=== PATIENT | male | born 1965 ===

== ENCOUNTER → 2023-04-12 | Outpatient (CLI) | payer MEDICARE, OTHER ==
[~2023-04-12] MED LIST: AMOX500 PO; HYDGUAL120 PO
[2023-04-12 19:41] LABS: Microalb/Creat Ratio UR, Rand 10.234 mg/g (0.000-30.000); Microalbumin, Random Urine 21.9 mg/L (0.000-20.000)
== END | disposition home or self-care (01) ==
LOC: LAB SHORT 10:30 → LAB 10:30
PROVIDERS: Physician Assistant
DX: E11.65 Type 2 diabetes mellitus with hyperglycemia (principal); Z79.4 Long term (current) use of insulin
CPT/HCPCS: 82043; 82570